=== PATIENT | female | born 1965 | race American Indian/Alaskan Native ===

== ENCOUNTER 2017-07-23 20:54 | Emergency (ER) | payer MEDICAID, OTHER ==
[2017-07-23 20:56] VITALS: BMI 27.9
--- NOTE | 2017-07-23 21:24 | C.PDOC ---
History Of Present Illness patient complaining of chest discomfort after vomiting. Pt has been drinking heavily over the last few days. No f/c. Speaking in complete sentences. Reproducible chest discomfort Time Seen by Provider: 07/23/17 21:24 Chief Complaint (Nursing): Chest Pain History Per: Patient History/Exam Limitations: no limitations Onset/Duration Of Symptoms: Days (2) Current Symptoms Are (Timing): Still Present Context: Other Severity: Mild Pain Scale Rating Of: 3 Quality: Dull, Aching Associated Symptoms: denies: Nausea, Dyspnea Modifying Factors: None Exacerbating Factors: Turning, Movement Alleviating Factors: None Recent travel outside of the [place]: No Additional History Per: Patient Past Medical History Reviewed: Historical Data, Nursing Documentation, Vital Signs Vital Signs: Last Vital Signs Temp 98 F 07/24/17 00:31 Pulse 110 H 07/24/17 00:31 Resp 20 07/24/17 00:31 BP 143/88 07/24/17 00:31 Pulse Ox 98 07/24/17 00:31 - Medical History PMH: Bronchitis, HTN, Seizures Denies: Chronic Kidney Disease - [facility] Procedures OTHER GROUP THERAPY (01/27/15) Family History: States: No Known Family Hx - Social History Hx Tobacco Use: No Hx Alcohol Use: Yes Hx Substance Use: Yes - Immunization History Hx Tetanus Toxoid Vaccination: No Hx Influenza Vaccination: No Hx Pneumococcal Vaccination: No Review Of Systems Constitutional: Negative for: Fever, Chills Eyes: Negative for: Redness ENT: Negative for: Throat Pain Cardiovascular: Positive for: Chest Pain (with movement) Respiratory: Negative for: Shortness of Breath Gastrointestinal: Negative for: Nausea, Vomiting, Abdominal Pain Genitourinary: Negative for: Dysuria Musculoskeletal: Positive for: Back Pain Skin: Negative for: Rash, Lesions Neurological: Negative for: Weakness Psych: Positive for: Anxiety Physical Exam - Physical Exam Appears: Non-toxic Skin: Warm, Dry Head: Normacephalic Eye(s): bilateral: Normal Inspection, PERRL, EOMI Oral Mucosa: Moist ED Course And Treatment - Laboratory Results Result Diagrams: 07/23/17 22:25 07/23/17 22:25 ECG: Interpreted By Me, Viewed By Me ECG Rhythm: Sinus Tachycardia (120), Nonspecific Changes O2 Sat by Pulse Oximetry: 94 Pulse Ox Interpretation: Normal - Radiology CXR: Interpreted by Me, Viewed By Me CXR Interpretation: No: Infiltrates, Fracture, Pnemothorax Disposition Counseled Patient/Family Regarding: Studies Performed, Diagnosis - Disposition Disposition: HOSPITALIZED Disposition Time: 21:24 Condition: FAIR Prescriptions: Ondansetron ODT [Zofran ODT] 1 odt PO BID PRN #6 odt PRN Reason: Nausea/Vomiting Instructions: Acute Nausea and Vomiting (ED), Alcohol Intoxication (DC) Forms: [facility] (Indonesian) - Clinical Impression Clinical Impression: Vomiting, Alcohol intoxication
[2017-07-23 22:32] LABS: BASO # 0.1 K/uL (0.0-0.2)
[2017-07-23 22:47] LABS: INR 0.9
[2017-07-23 22:48] LABS: CHLORIDE 81 mmol/L (98-107); SODIUM 137 mmol/L (132-148)
[2017-07-23 22:51] LABS: ALB/GLOB RATIO 1.3 (1.0-2.1); ALKALINE PHOSPHATASE 112 U/L (38-126); ALT/SGPT 17 U/L (9-52); AST/SGOT 31 U/L (14-36); BILIRUBIN,TOTAL 0.9 mg/dL (0.2-1.3); BLOOD UREA NITROGEN 20 mg/dL (7-17); CALCIUM 10.9 mg/dl (8.6-10.4); CARBON DIOXIDE 22 mmol/L (22-30); GFR AFRICAN-AMERICAN > 60; GLUCOSE,RANDOM 71 mg/dL (65-105); TOTAL PROTEIN 8.6 g/dL (6.3-8.3)
[2017-07-23 22:52] LABS: ALCOHOL SERUM 144 mg/dl (0-10)
[2017-07-23 23:11] LABS: BASO % 0.4 % (0.0-2.0); LYMPH # 2.4 K/uL (1.0-4.3); LYMPH % 12.7 % (20.0-40.0); MEAN CELL VOLUME 88.9 fL (81.0-99.0); MEAN CORPUSCULAR HEMOGLOBIN 29.3 pg (27.0-31.0); MEAN CORPUSCULAR HGB CONC 32.9 g/dL (33.0-37.0); MEAN PLATELET VOLUME 8.4 fL (7.2-11.7); MONO # 1.4 K/uL (0.0-0.8); MONO % 7.5 % (0.0-10.0); NRBC % 0.1 % (0.0-2.0); RED CELL DISTRIBUTION WIDTH 15.7 % (11.5-14.5); WHITE BLOOD COUNT 18.7 K/uL (4.8-10.8)
[2017-07-23 23:41] LABS: RBC URINE 8 /hpf (0-3); URINE BILIRUBIN NEGATIVE (NEGATIVE); URINE BLOOD 1+ (NEGATIVE); URINE COLOR Yellow (YELLOW); URINE GLUCOSE (UA) 1+ mg/dL (Normal); URINE KETONE 2+ mg/dL (NEGATIVE); URINE LEUKOCYTE ESTERASE NEG Leu/uL (Negative); URINE PROTEIN 2+ mg/dL (NEGATIVE); URINE UROBILINOGEN NORMAL mg/dL (0.2-1.0); WBC URINE 1 /hpf (0-5)
[2017-07-24 00:32] VITALS: RESP 20; TEMP 98
[2017-07-24 02:31] VITALS: BP 146/90; PULSE 88; O2SAT 98
--- NOTE | 2017-07-24 08:05 | RAD ---
PROCEDURE: CHEST RADIOGRAPH, 1 VIEW HISTORY: chest pain COMPARISON: Comparison is made to 01/27/2015 FINDINGS: LUNGS: Clear. PLEURA: No pneumothorax or pleural fluid seen. CARDIOVASCULAR: Normal. OSSEOUS STRUCTURES: No significant abnormalities. VISUALIZED UPPER ABDOMEN: Normal. OTHER FINDINGS: None. IMPRESSION: No active disease.
--- NOTE | 2017-07-24 14:15 | CARD ---
APPROVED REPORT EKG Measurement Heart [id number] <Conclusion> Sinus tachycardia Biatrial enlargement Abnormal ECG
== END 2017-07-24 02:29 | disposition home or self-care (01) ==
LOC: C.ER 20:54
DX: F10.129 Alcohol abuse with intoxication, unspecified (principal); Y90.6 Blood alcohol level of 120-199 mg/100 ml; R11.10 Vomiting, unspecified; I10 Essential (primary) hypertension
CPT/HCPCS: 71010; 80053; 80320; 81001; 83690; 83880; 84484; 84703; 85025; 85610; 85730; 93005; 96374; 96375; 99285; J1885; J2405

== ENCOUNTER 2018-08-12 20:04 | Inpatient (IN) | payer MEDICAID, OTHER ==
[2018-08-12 20:04] VITALS: BMI 26.3
[2018-08-12] MEDS ORDERED: Sodium Chloride 0.9% 1,000 ML IV ONE (20:35)
[2018-08-12 20:56] LABS: URINE BACTERIA RARE (<OCC); URINE BILIRUBIN NEGATIVE (NEGATIVE); URINE BLOOD 1+ (NEGATIVE); URINE CLARITY Clear (Clear); URINE COLOR Yellow (YELLOW); URINE GLUCOSE (UA) 1+ mg/dL (Normal); URINE HYALINE CAST >20 /lpf (0-2); URINE LEUKOCYTE ESTERASE NEG Leu/uL (Negative); URINE PROTEIN 2+ mg/dL (NEGATIVE); URINE UROBILINOGEN NORMAL mg/dL (0.2-1.0)
[2018-08-12 20:59] LABS: SQUAMOUS EPITHIAL 3 /hpf (0-5)
[2018-08-12 21:13] LABS: BARBITURATES, UR NEGATIVE (NEGATIVE); BENZODIAZEPINES, UR NEGATIVE (NEGATIVE); OPIATES, UR NEGATIVE (NEGATIVE); PHENCYCLIDINE, UR NEGATIVE (NEGATIVE)
[2018-08-12 21:44] LABS: BASO # 0.1 K/uL (0.0-0.2); BASO % 0.7 % (0.0-2.0); HEMOGLOBIN 14.9 g/dL (11.0-16.0); LYMPH # 1.4 K/uL (1.0-4.3); LYMPH % 6.9 % (20.0-40.0); MEAN CORPUSCULAR HEMOGLOBIN 29.6 pg (27.0-31.0); MEAN CORPUSCULAR HGB CONC 33.3 g/dL (33.0-37.0); MEAN PLATELET VOLUME 7.4 fL (7.2-11.7); MONO # 0.5 K/uL (0.0-0.8); MONO % 2.5 % (0.0-10.0); NEUT # 18.4 K/uL (1.8-7.0); NEUT % 89.9 % (50.0-75.0); PLATELET COUNT 473 K/uL (130-400); RBC 5.03 Mil/uL (3.80-5.20); RED CELL DISTRIBUTION WIDTH 15.5 % (11.5-14.5); WHITE BLOOD COUNT 20.4 K/uL (4.8-10.8)
[2018-08-12 21:57] LABS: ALB/GLOB RATIO 1.4 (1.0-2.1); ALBUMIN 5.1 g/dL (3.5-5.0); BLOOD UREA NITROGEN 14 mg/dL (7-17); CALCIUM 9.8 mg/dl (8.6-10.4); GFR NON-AFRICAN AMERICAN > 60
[2018-08-12 22:01] LABS: ALT/SGPT 28 U/L (9-52); AST/SGOT 29 U/L (14-36)
[2018-08-12] MEDS ORDERED: Iohexol 350mg/ml 100 ML ONE (22:19)
[2018-08-12 22:21] LABS: BANDS 1 % (0-2); HYPOCHROMIC SLIGHT; LYMPHOCYTE 7 % (20-40); MICROCYTOSIS SLIGHT; MONOCYTE 1 % (0-10); NEUTROPHIL 91 % (50-75); PLATELET ESTIMATE NORMAL (NORMAL); TOTAL CELLS COUNTED 100
[2018-08-12 22:22] LABS: LARGE PLATELETS PRESENT
[2018-08-12] MEDS ORDERED: Morphine 4 MG/ML VIAL IV STA (23:25)
[2018-08-12] MEDS ORDERED: metroNIDAZOLE IV 500 mg/100 ml 500 MG/100 ML BAG IVPB STA (23:26)
[2018-08-12] MEDS ORDERED: Ciprofloxacin 400mg/200ml D5W 400 MG/200 ML BAG IVPB STA (23:26)
[2018-08-12] MEDS ORDERED: metroNIDAZOLE IV 500 mg/100 ml 500 MG/100 ML BAG ONE (23:35)
[2018-08-12] MEDS: Dextrose 5%/0.45% NS 1,000 ML IV SCH (23:50)
[2018-08-12] MEDS ORDERED: Dextrose 5%-0.225% NS 1,000 ML IV ONE (23:53)
[2018-08-13 00:37] VITALS: RESP 20
[2018-08-13] MEDS: Ciprofloxacin 400mg/200ml D5W 400 MG/200 ML BAG IVPB SCH ×2 (00:56→11:52)
[2018-08-13] MEDS: HYDROmorphone 1 mg/ml ISec IVP PRN ×2 (03:23→09:41)
--- NOTE | 2018-08-13 03:55 | C.PDOC ---
History Of Present Illness 53 year old female presents to the ER with a complaint of epigastric pain associated with nausea and nonbloody vomiting. Patient admits to ETOH use tonight, states she "binge drinks". Denies fever or cough. She also notes she feels depressed but denies suicidal ideation or homicidal ideation. Time Seen by Provider: 08/12/18 20:15 Chief Complaint (Nursing): Flu-like Symptoms History Per: Patient History/Exam Limitations: no limitations Onset/Duration Of Symptoms: Hrs Current Symptoms Are (Timing): Still Present Location Of Pain/Discomfort: Epigastric Radiation Of Pain To:: None Quality Of Discomfort: Unable To Describe Associated Symptoms: denies: Fever, Other (Cough) Exacerbating Factors: None Alleviating Factors: None Recent travel outside of the [place]: No Past Medical History Reviewed: Historical Data, Nursing Documentation, Vital Signs Vital Signs: Last Vital Signs Temp 98.9 F 08/13/18 00:36 Pulse 100 H 08/13/18 00:36 Resp 20 08/13/18 00:36 BP 156/85 H 08/13/18 00:36 Pulse Ox 96 08/13/18 00:36 - Medical History PMH: Anxiety, Bronchitis, COPD, Depression, Gastrointestinal Ulcer, Migraine Denies: Diabetes, Hepatitis, HIV, HTN, Chronic Kidney Disease, Seizures, Sexually Transmitted Disease - [facility] Procedures CONTROL BLEEDING IN GASTROINTESTINAL TRACT, ENDO (12/02/17) EXCISION OF STOMACH, ENDO, DIAGN (12/02/17) INSERT INFUSION DEV IN R INT JUGULAR VEIN, PERC (12/02/17) INTRODUCTION OF OTHER THERAPEUTIC SUBSTANCE INTO UP GI, ENDO (12/02/17) OTHER GROUP THERAPY (01/27/15) TRANSFUSE NONAUT RED BLOOD CELLS IN PERIPH VEIN, PERC (12/02/17) ULTRASONOGRAPHY OF RIGHT JUGULAR VEINS, GUIDANCE (12/02/17) Family History: States: Unknown Family Hx - Social History Hx Tobacco Use: No Hx Alcohol Use: Yes Hx Substance Use: No - Immunization History Hx Tetanus Toxoid Vaccination: No Hx Influenza Vaccination: No Hx Pneumococcal Vaccination: No Review Of Systems Constitutional: Negative for: Fever Cardiovascular: Negative for: Chest Pain, Palpitations Respiratory: Negative for: Cough Gastrointestinal: Positive for: Nausea, Vomiting, Abdominal Pain Psych: Negative for: Suicidal ideation, Other (Homicidal ideation) Physical Exam - Physical Exam Appears: Non-toxic Skin: Normal Color, Warm, Dry Head: Atraumatic, Normacephalic Eye(s): bilateral: Normal Inspection Oral Mucosa: Moist Throat: Normal, No Erythema Neck: Normal, Supple Chest: Symmetrical, No Tenderness Cardiovascular: Rhythm Regular Respiratory: Normal Breath Sounds, No Rales, No Rhonchi, No Wheezing Gastrointestinal/Abdominal: Soft, Tenderness (Diffuse), No Guarding, No Rebound Back: No CVA Tenderness Neurological/Psych: Oriented x3, Normal Speech ED Course And Treatment - Laboratory Results Result Diagrams: 08/12/18 21:41 08/12/18 21:41 O2 Sat by Pulse Oximetry: 96 (Room air) Pulse Ox Interpretation: Normal Progress Note: CT abd/pel and blood work ordered. Pepcid, zofran, IV fluids and morphine administered. Disposition - Disposition Disposition: HOSPITALIZED Disposition Time: 23:20 Condition: STABLE - Clinical Impression Clinical Impression: Colitis, Abdominal pain - Scribe Statement The provider has reviewed the documentation as recorded by the Scribe Jeremie Quarles All medical record entries made by the Jose De Jesusibsurjit were at my direction and personally dictated by me. I have reviewed the chart and agree that the record accurately reflects my personal performance of the history, physical exam, medical decision making, and the department course for this patient. I have also personally directed, reviewed, and agree with the discharge instructions and disposition.
--- NOTE | 2018-08-13 09:17 | CT ---
Date of service: 08/12/2018 PROCEDURE: CT Abdomen and Pelvis with contrast HISTORY: diffuse abd pain COMPARISON: 03/26/2014. TECHNIQUE: CT scan of the abdomen and pelvis was performed after administration of intravenous contrast. Oral contrast was not administered. Coronal and sagittal reformatted images were obtained. Contrast dose: 100 mL Omnipaque 350 Radiation dose: Total exam DLP = 570.64 mGy-cm. This CT exam was performed using one or more of the following dose reduction techniques: Automated exposure control, adjustment of the mA and/or kV according to patient size, and/or use of iterative reconstruction technique. FINDINGS: LOWER THORAX: The visualized lungs are clear. LIVER: Mild hepatomegaly and diffuse fatty liver. No gross lesion or ductal dilatation. GALLBLADDER AND BILE DUCTS: No calcified gallstones. PANCREAS: Normal in size with homogeneous enhancement. No gross lesion or ductal dilatation. SPLEEN: Normal in size with homogeneous enhancement. ADRENALS: No discrete nodule. KIDNEYS AND URETERS: Normal in size with homogeneous enhancement. No hydronephrosis. No solid mass. VASCULATURE: Early atherosclerotic aortoiliac calcifications. No aortic aneurysm. BOWEL: The small bowel loops are normal in caliber. There is submucosal fat deposit travis in the ascending and transverse colon. There is mild circumferential mural thickening in the left hemicolon. No bowel obstruction APPENDIX: Normal appendix. PERITONEUM: No free fluid. No free air. LYMPH NODES: No enlarged lymph nodes. BLADDER: Grossly normal in appearance. REPRODUCTIVE: The uterus is normal in size. BONES: No acute fracture. Within normal limits for the patient's age. OTHER FINDINGS: Is there is a small sliding hiatal hernia. There is a moderate circumferential mural thickening in the distal esophagus. IMPRESSION: Mild circumferential mural thickening in the left hemicolon is nonspecific and could be related to underdistention however acute nonspecific infectious/inflammatory colitis is also a consideration. Clinical follow-up is advised. . Fat deposit travis in the ascending and transverse colon likely represents chronic colitis. Mild hepatomegaly and fatty liver. Small sliding hiatal hernia. Moderate circumferential mural thickening in the distal esophagus could be related to underdistention however nonspecific esophagitis and neoplasm are also differential considerations. Clinical follow-up is recommended and if clinically indicated correlation with EGD may be performed. A preliminary report was provided by [facility].
[2018-08-13] MEDS: Thiamine 100 mg/ml Inj IM SCH (09:40)
[2018-08-13] MEDS: Dextrose 5%/0.45% NS 1,000 ML IV SCH ×2 (10:14→21:47)
[2018-08-13] MEDS: Lidocaine 5% Patch TD SCH (10:47)
[2018-08-13] MEDS: metroNIDAZOLE IV 500 mg/100 ml 500 MG/100 ML BAG IVPB SCH ×2 (11:11→17:38)
[2018-08-13 11:37] LABS: BASO # 0.1 K/uL (0.0-0.2); BASO % 0.4 % (0.0-2.0); EOS % 0.2 % (0.0-4.0); LYMPH % 16.4 % (20.0-40.0); MEAN CORPUSCULAR HEMOGLOBIN 30.1 pg (27.0-31.0); MEAN CORPUSCULAR HGB CONC 34.2 g/dL (33.0-37.0); MEAN PLATELET VOLUME 7.7 fL (7.2-11.7); MONO # 1.3 K/uL (0.0-0.8); MONO % 7.4 % (0.0-10.0); NEUT # 13.6 K/uL (1.8-7.0); NEUT % 75.6 % (50.0-75.0); NRBC % 0.1 % (0.0-2.0); RBC 4.22 Mil/uL (3.80-5.20); RED CELL DISTRIBUTION WIDTH 15.5 % (11.5-14.5)
[2018-08-13 11:42] LABS: HEMOGLOBIN 12.7 g/dL (11.0-16.0)
[2018-08-13 11:52] LABS: ALB/GLOB RATIO 1.3 (1.0-2.1); ALBUMIN 4.3 g/dL (3.5-5.0); ALT/SGPT 27 U/L (9-52); AST/SGOT 30 U/L (14-36); BLOOD UREA NITROGEN 15 mg/dL (7-17); GFR NON-AFRICAN AMERICAN > 60
--- NOTE | 2018-08-13 13:31 | CP.PCM.PN ---
Subjective - Date & Time of Evaluation Date of Evaluation: 08/13/18 Time of Evaluation: 09:05 - Subjective Subjective: PGY 2 progress note ( Dr. Mendez's service) CC: Multiple complaints ( Epigastric pain, chest discomfort and acid reflux) HPI: Patient is a 53 year old female with past medical history of alcohol abuse and HTN, who presents to the ED with multiple complaints: epigastric pain, diffuse abdominal pain, chest discomfort and acid reflux that started yesterday morning after drinking 2 bottle of wine (binge drinking). Patient admits to ass ociated symptoms of non-bloody vomiting and dizziness. Patient also admits to feeling depressed but denies any plans of hurting herself. Patient denies any symptoms of fever, chills, nausea, hematemesis, melena, hematochezia, cough, headache but does admits to mild diffuse lower abdominal pain with 1-2 loose stool. During the encounter, patient is with improved symptoms. Patient does have a history of leaving AMA. PMD: Dr. Aquino PMHx: Alcohol abuse, HTN PSHx: Denies Fam Hx: Pancreatic Cancer (Father-Alive), Cancer (Paternal Uncle-), Cancer (Paternal Aunt- Alive Medications: Prilosec prn Allergies: NKDA Social Hx: Lives from house to house, admits to intermittent binge drinking ( Hx of heavy alcohol abuse), Daily marijuana use, tobacco use > 30 years (1/2PPD) Objective - Vital Signs/Intake and Output Vital Signs (last 24 hours): Temp Pulse Resp BP Pulse Ox 98.5 F 112 H 20 151/97 H 96 08/13/18 07:40 08/13/18 07:40 08/13/18 07:40 08/13/18 07:40 08/13/18 07:40 Intake and Output: 08/13/18 08/13/18 06:59 18:59 Intake Total 600 Balance 600 - Medications Medications: Current Medications Dextrose/Sodium Chloride (Dextrose 5%/0.45% Ns 1000 Ml) 1,000 mls @ 100 mls/hr IV .Q10H RENZO Last Admin: 08/13/18 10:14 Dose: Not Given Ciprofloxacin (Cipro 400mg/200ml Dsw) 400 mg in 200 mls @ 133 mls/hr IVPB Q12H RENZO; Protocol Last Admin: 08/13/18 11:52 Dose: 133 mls/hr Folic Acid 1 mg/ Sodium (Chloride) 100.2 mls @ 60 mls/hr IV DAILY [facility] Last Admin: 08/13/18 11:15 Dose: 60 mls/hr Metronidazole (Flagyl) 500 mg in 100 mls @ 100 mls/hr IVPB Q8H RENZO; Protocol Last Admin: 08/13/18 11:11 Dose: 100 mls/hr Influenza Virus Vaccine (Fluzone Quad [id number]) 60 mcg IM .ONCE ONE Stop: 08/15/18 10:01 Lidocaine (Lidoderm) 1 ea TD DAILY [facility] Last Admin: 08/13/18 10:47 Dose: 1 ea Lorazepam (Ativan) 2 mg IVP Q6H PRN PRN Reason: Symptoms of alcohol withdrawl Last Admin: 08/13/18 10:47 Dose: 2 mg Ondansetron HCl (Zofran Inj) 4 mg IVP Q4H PRN PRN Reason: Nausea/Vomiting Pantoprazole Sodium (Protonix Inj) 40 mg IVP DAILY [facility] Last Admin: 08/13/18 09:40 Dose: 40 mg Pneumococcal Polyvalent Vaccine (Pneumovax 23 Vaccine) 0.5 ml IM .ONCE ONE Stop: 08/15/18 10:01 Thiamine HCl (Vitamin B1 Inj) 100 mg IM DAILY [facility] Last Admin: 08/13/18 09:40 Dose: 100 mg - Labs Labs: 08/13/18 11:19 08/13/18 11:19 - Constitutional Appears: No Acute Distress - Head Exam Head Exam: ATRAUMATIC, NORMAL INSPECTION - Eye Exam Eye Exam: EOMI, Normal appearance - ENT Exam ENT Exam: Mucous Membranes Dry - Respiratory Exam Respiratory Exam: Clear to Ausculation Bilateral, NORMAL BREATHING PATTERN. absent: Prolonged Expiratory Phase, Rhonchi, Wheezes, Respiratory Distress - Cardiovascular Exam Cardiovascular Exam: REGULAR RHYTHM, +S1, +S2. absent: Bradycardia, Tac hycardia, Murmur - GI/Abdominal Exam GI & Abdominal Exam: Soft, Normal Bowel Sounds. absent: Distended, Firm, Guarding, Rigid, Tenderness - Extremities Exam Extremities Exam: Normal Inspection. absent: Calf Tenderness, Full ROM, Joint Swelling, Pedal Edema, Tenderness - Back Exam Back Exam: NORMAL INSPECTION. absent: CVA tenderness (L), CVA tenderness (R) Additional comments: Lipoma (Left upper back) Left upper/midspine thoracic tenderness on palpation - Neurological Exam Neurological Exam: Alert, Awake, Oriented x3 - Psychiatric Exam Psychiatric exam: Normal Affect - Skin Skin Exam: Normal Color Assessment and Plan (1) Colitis Assessment & Plan: CT abdomen/Pelvis (08/12/18): Mild circumferential mural thickening in the left hemicolon is nonspecific and could be related to underdistention however acute nonspecific infectious/inflammatory colitis is also a consideration. Clinical follow-up is advised. Fat deposit travis in the ascending and transverse colon likely represents chronic colitis. Mild hepatomegaly and fatty liver. Small sliding hiatal hernia. Moderate circumferential mural thickening in the distal esophagus could be related to underdistention however nonspecific esophagitis and neoplasm are also differential considerations. Clinical follow-up is r ecommended and if clinically indicated correlation with EGD may be performed. Consultation: * GI, Dr. Redding---Help appreciated Medications/Management: * Cipro 400ml IV Q12H * Flagyl 500mg IV 8H * Florastor 250mg BID * Protonix 40mg IV daily * D51/2 NS @ 100mls/hr * Liquid diet by dinner time Status: Acute (2) Alcohol dependence Assessment & Plan: Psychiatry Consult, Dr. Portillo---> Help appreciated: * Management as per recommendation * Librium 25mg PO Q6H * Librium 25mg PO Q4H PRN * Clonidine 0.1mg PO Q4H prn * Folic acid 1mg IV daily * Multivitamin 1 PO daily * Thiamine 1mg IM daily * Ativan 2mg IV Q6H PRN Status: Acute (3) Upper back pain Assessment & Plan: Lidoderm patch Status: Acute (4) Prophylactic measure Assessment & Plan: GI: Protonix 40mg IV daily DVT: SCDs All plans and management discussed with Dr. Mendez Status: Acute
--- NOTE | 2018-08-13 13:53 | PCM.PSYCH ---
Initial Psychiatric Evaluation - Initial Psychiatric Evaluation Type of Admission: Voluntary Legal Status: Capacity Chief Complaint (in patient's own words): "I feel anxious" History of Present Illness and Precipitating Events: The pt is seen, chart reviewed and case discussed. 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 She describes withdrwal sx, mild DTs and no seizures She was detoxed once 3 years ago but no rehab Uses [facility] at times, no drugs, smokes 1/2 ppd cig Feels depressed and anxious Not suicidal but very depressed Past psych hx: Depression, no admission andn no jaime attempt Medical hx: GI and back problems Family: Alcoholism Current Medications: Active Medications Generic Name Dose Route Start Last Admin Trade Name Freq PRN Reason Stop Dose Admin Chlordiazepoxide 0 mg 08/13/18 16:00 Librium PO 08/18/18 15:59 Q6 RENZO Taper Chlordiazepoxide 25 mg 08/13/18 13:51 Librium PO Q4H PRN Alcohol Withdrawal Clonidine HCl 0.1 mg 08/13/18 13:51 Catapres PO Q4H PRN Symptoms of alcohol withdrawl Folic Acid 1 mg 08/14/18 10:00 Folic Acid PO DAILY RENZO Dextrose/Sodium Chloride 1,000 mls @ 100 mls/hr 08/12/18 23:30 08/13/18 10:14 Dextrose 5%/0.45% Ns 1000 Ml IV Not Given .Q10H RENZO Ciprofloxacin 400 mg in 200 mls @ 133 mls/hr 08/12/18 23:30 08/13/18 11:52 Cipro 400mg/200ml Dsw IVPB 133 mls/hr Q12H RENZO Administration Protocol Folic Acid 1 mg/ Sodium 100.2 mls @ 60 mls/hr 08/13/18 10:15 08/13/18 11:15 Chloride IV 60 mls/hr DAILY [facility] Administration Metronidazole 500 mg in 100 mls @ 100 mls/hr 08/13/18 10:30 08/13/18 11:11 Flagyl IVPB 100 mls/hr Q8H RENZO Administration Protocol Influenza Virus Vaccine 60 mcg 08/15/18 10:00 Fluzone Quad [id number] IM 08/15/18 10:01 .ONCE ONE Lidocaine 1 ea 08/13/18 10:15 08/13/18 10:47 Lidoderm TD 1 ea DAILY [facility] Administration Lorazepam 2 mg 08/13/18 10:14 08/13/18 10:47 Ativan IVP 2 mg Q6H PRN Administration Symptoms of alcohol withdrawl Multivitamins 1 tab 08/14/18 10:00 Hexavitamin PO DAILY RENZO Ondansetron HCl 4 mg 08/12/18 23:26 Zofran Inj IVP Q4H PRN Nausea/Vomiting Pantoprazole Sodium 40 mg 08/13/18 10:00 08/13/18 09:40 Protonix Inj IVP 40 mg DAILY [facility] Administration Pneumococcal Polyvalent Vaccine 0.5 ml 08/15/18 10:00 Pneumovax 23 Vaccine IM 08/15/18 10:01 .ONCE ONE Thiamine HCl 100 mg 08/13/18 10:00 08/13/18 09:40 Vitamin B1 Inj IM 100 mg DAILY RENZO Administration Thiamine HCl 100 mg 08/14/18 10:00 Vitamin B1 Tab PO DAILY [facility] Past Psychiatric History - Past Psychiatric History Previous Treatment History: None Pertinent Medical Hx (Current Medical&Sleep Prob, Allergies): Allergies Allergy/AdvReac Type Severity Reaction Status Date / Time No Known Allergies Allergy Verified 12/02/17 22:00 Folic Acid 1 mg PO DAILY #30 tab 12/05/17 Multivitamin Therapeutic Tab [Thera Tab] 1 tab PO 0800 #30 tab 12/05/17 Pantoprazole [Protonix] 40 mg PO BID #60 ect 12/05/17 Sucralfate [Carafate Oral Susp] 1 gm PO 0630,1130,1630,2200 #1 bottle 12/05/17 Thiamine [Vitamin B1 Tab] 100 mg PO DAILY #30 tab 12/05/17 chlordiazePOXIDE [Librium] 10 mg PO Q8 #21 cap 12/05/17 Review of Systems - Neurological Neurological: Tremor - Psychiatric Psychiatric: Abnormal Sleep Pattern, Anhedonia, Change in Appetite, Depression. absent: Hallucinations, Homicidal Ideation, Paranoia, Suicidal Ideation Mental Status Examination - Personal Presentation Personal Presentation: Looks older than stated age - Affect Affect: Constricted - Speech Speech: Organized - Mood Mood: Depressed - Formal Thought Process Formal Thought Process: No Impairment - Cognitive Functions Orientation: Person, Place, Situation, Time Sensorium: Alert Attention/Concentration: Attentive Estimate of Intelligence: Below average Judgement: Intact, as evidence by: Insight regarding need for hospitalization Memory: Recent intact, as evidence by: Ability to recall events of the day, Remote impaired as evidenced by: Inability to recall sig life events - Risk Risk: Withdrawal, Diminished functioning - Strength & Assets Inventory Strength & Assets Inventory: Cooperative - Limitations Limitations: Living alone DSM 5 DX - DSM 5 DSM 5 Diagnosis: Alcohol withdrawal Alcohol use d/o - severe Major depression, single, moderate Anxiety d/o - unspecified - Recommended/Plan of Treatment Treatment Recommendations and Plan of Treatment: Start librium taper gabapentin Remeron for dep Support and psychoed Refer to rehab upon completion of detox She maybe transferred to detox if medically cleared before the end of detox (call science writer) 33 min
[2018-08-13] MEDS: Saccharomyces Boulardi 250 mg Cap PO SCH (17:23)
--- NOTE | 2018-08-13 20:32 | PN ---
DATE: 08/13/2018 LOCATION: 368, bed B. SUBJECTIVE: This is a 53 years old female seen and examined initially for GI consultation on 08/12/2018 as requested by the admitting MD, reexamined again today, appeared to be somewhat more awake, alert, oriented, but restless, with bilateral both hands fine tremors on and off. The patient denied any chest pain, palpitation, significant shortness of breath or evidence of active bleeding. The most recent lab results showed leukocytosis of with normal hemoglobin and hematocrit, normal platelet count with CO2 content 32 indicative of respiratory alkalosis. Blood glucose level 138, phosphorus low 2.2 with initially normal liver function test as well as normal lipase level, but alcohol quantitative was 115, excessively increased. Official CAT scan report is seen. PHYSICAL EXAMINATION: GENERAL: A 53 years old female. VITAL SIGNS: Afebrile with heart rate of 102, respiratory 20-22, blood pressure of 136/80. HEENT: Showed pale dry oral mucous membrane. Nonicteric sclerae. LUNGS: Few scattered crepitation. Decreased air entry at bases. HEART: Positive S1 and S2. ABDOMEN: Soft with mild generalized tenderness. No mass or organomegaly. No rebound tenderness or guarding. EXTREMITIES: With fine tremors. No clubbing, cyanosis or edema. No reported new neurological deficits, sensory or motor. IMPRESSION: 1. Reexacerbation of peptic ulcer disease to rule out gastric versus duodenal ulcer. 2. Alcoholism. 3. Abnormal CAT scan of the abdomen and pelvis. 4. Known history of chronic obstructive pulmonary disease, depression, migraine headache and severe anxiety syndrome. SUGGESTIONS: 1. Agree with your plan. 2. Follow up psychiatric evaluation. 3. Cancer markers. 4. Endoscopic evaluation of the GI tract when the patient is more stable clinically. Further recommendation to follow. Tawny Preston MD
[2018-08-14] MEDS: Ciprofloxacin 400mg/200ml D5W 400 MG/200 ML BAG IVPB SCH ×2 (00:16→12:17)
[2018-08-14] MEDS: metroNIDAZOLE IV 500 mg/100 ml 500 MG/100 ML BAG IVPB SCH ×2 (02:54→11:26)
[2018-08-14] MEDS: Dextrose 5%/0.45% NS 1,000 ML IV SCH (05:43)
[2018-08-14 08:39] VITALS: BP 117/81; PULSE 86; TEMP 97.9; O2SAT 96
[2018-08-14] MEDS: Saccharomyces Boulardi 250 mg Cap PO SCH (09:38)
[2018-08-14] MEDS: Thiamine 100 mg/ml Inj IM SCH (09:38)
[2018-08-14] MEDS ORDERED: Multiple Vitamins Tab PO SCH (10:00)
[2018-08-14] MEDS: Lidocaine 5% Patch TD SCH (10:03)
[2018-08-14 11:22] LABS: BASO # 0.1 K/uL (0.0-0.2); BASO % 0.8 % (0.0-2.0); EOS % 0.6 % (0.0-4.0); HEMOGLOBIN 13.5 g/dL (11.0-16.0); LYMPH # 2.8 K/uL (1.0-4.3); LYMPH % 35.5 % (20.0-40.0); MEAN CELL VOLUME 89.5 fL (81.0-99.0); MEAN CORPUSCULAR HGB CONC 33.6 g/dL (33.0-37.0); MONO # 0.4 K/uL (0.0-0.8); MONO % 5.4 % (0.0-10.0); NEUT # 4.6 K/uL (1.8-7.0); NEUT % 57.7 % (50.0-75.0); NRBC % 0.1 % (0.0-2.0); RBC 4.49 Mil/uL (3.80-5.20); RED CELL DISTRIBUTION WIDTH 15.2 % (11.5-14.5)
[2018-08-14 11:56] LABS: ALB/GLOB RATIO 1.3 (1.0-2.1); ALBUMIN 4.1 g/dL (3.5-5.0); ALT/SGPT 23 U/L (9-52); AST/SGOT 40 U/L (14-36); BLOOD UREA NITROGEN 8 mg/dL (7-17); CALCIUM 9.5 mg/dl (8.6-10.4); GFR NON-AFRICAN AMERICAN > 60
[2018-08-14 12:15] LABS: PROTHROMBIN TIME 11.2 SECONDS (9.7-12.2)
--- NOTE | 2018-08-14 13:27 | PN ---
DATE: 08/14/2018 LOCATION: 368, bed B. SUBJECTIVE: This is a 53-year-old female, seen and examined early in rounds without significant clinical changes, with generalized weakness and malaise. Appeared to be more alert and oriented. Intermittent period of mild nausea with dyspepsia. No reported active bleeding. No chest pain, palpitation or significant shortness of breath. The entire chart is reviewed including but not limited to most recent lab and radiology study results, current and previous medication list. Today's lab results show blood glucose level of 115. Rest of the lab results is still pending. It was reported also that the patient had elevated lactic acid with low phosphorus and normal cancer markers. Official CAT scan report reviewed again. PHYSICAL EXAMINATION GENERAL: A 53-year-old female. VITAL SIGNS: Afebrile with a pulse of 82, respiratory rate of 20-22, blood pressure of 110/76. HEENT: Showed pale, dry oral mucoid membrane. Nonicteric sclerae. LUNGS: Few scattered crepitation. Decreased air entry at bases. HEART: Positive S1 and S2. ABDOMEN: Soft with mild generalized tenderness. No mass or organomegaly. No rebound tenderness or guarding. EXTREMITIES: Without significant clubbing, cyanosis or edema. NEUROLOGIC: No reported new neurological deficits, sensory or motor. IMPRESSION: 1. Alcoholism. 2. Re-exacerbation of peptic ulcer disease. 3. Abnormal CAT scan of the abdomen and pelvis. 4 Known history of but not limited to depression, severe anxiety syndrome, chronic obstructive pulmonary disease with migraine headache. SUGGESTIONS: 1. Continue current management. 2. Follow up on coagulopathy . 3. The patient to be scheduled for upper endoscopy when she is more stable clinically due to the abnormal finding of the CAT scan of the abdomen and pelvis. Further recommendation to follow. Tawny Preston MD
[2018-08-15] MEDS ORDERED: Pneumococcal 23-Valent Vaccine IM ONE (10:00)
[2018-08-15] MEDS ORDERED: Influenza Vaccine 60 MCG/0.5 ML SYR (3 yr & up) IM ONE (10:00)
== END 2018-08-14 13:47 | disposition home or self-care (01) | DRG 177 ==
LOC: C.ER 20:04 → C.9E 23:21 → C.3T 23:58
PROVIDERS: ADMIT Internal Medicine Pulmonary Disease; ATTEND Internal Medicine Pulmonary Disease
DX: K27.9 Peptic ulcer, site unspecified, unspecified as acute or chronic, without hemorrhage or perforation (principal); F10.239 Alcohol dependence with withdrawal, unspecified; E87.3 Alkalosis; K52.9 Noninfective gastroenteritis and colitis, unspecified; J44.9 Chronic obstructive pulmonary disease, unspecified; F32.9 Major depressive disorder, single episode, unspecified; F41.9 Anxiety disorder, unspecified; I10 Essential (primary) hypertension; K21.9 Gastro-esophageal reflux disease without esophagitis; K44.9 Diaphragmatic hernia without obstruction or gangrene; F12.90 Cannabis use, unspecified, uncomplicated; D72.829 Elevated white blood cell count, unspecified; E83.39 Other disorders of phosphorus metabolism; G43.909 Migraine, unspecified, not intractable, without status migrainosus; K70.0 Alcoholic fatty liver; F17.210 Nicotine dependence, cigarettes, uncomplicated; Y90.5 Blood alcohol level of 100-119 mg/100 ml; Z80.9 Family history of malignant neoplasm, unspecified

== ENCOUNTER 2018-10-07 12:50 | Emergency (ER) | payer OTHER ==
[2018-10-07 12:50] VITALS: BMI 26.3
--- NOTE | 2018-10-07 13:43 | C.PDOC ---
History Of Present Illness 53 y/o female with no PMHX presents to the ED via ambulance for psychiatric evaluation. As per EMS, patients daughter called 911 after patient expressed suicidal ideation. On arrival to the ED, patient denies having any suicidal or homicidal ideation. States she feels depressed, ongoing for some time now. Denies having any pain or medical complaints. Time Seen by Provider: 10/07/18 13:12 Chief Complaint (Nursing): Psychiatric Evaluation History Per: Patient History/Exam Limitations: no limitations Onset/Duration Of Symptoms: Days Current Symptoms Are (Timing): Still Present Associated Symptoms: Depression. denies: Suicidal Thoughts, Suicidal Plan Additional History Per: EMS Past Medical History Reviewed: Historical Data, Nursing Documentation, Vital Signs Vital Signs: Last Vital Signs Temp 98.5 F 10/07/18 13:06 Pulse 120 H 10/07/18 13:06 Resp 14 10/07/18 13:06 BP 177/105 H 10/07/18 13:06 Pulse Ox 97 10/07/18 13:06 - Medical History PMH: Anxiety, Bronchitis, COPD, Depression, Gastrointestinal Ulcer, Migraine Denies: Diabetes, Hepatitis, HIV, HTN, Chronic Kidney Disease, Seizures, Sexually Transmitted Disease - [facility] Procedures CONTROL BLEEDING IN GASTROINTESTINAL TRACT, ENDO (12/02/17) EXCISION OF STOMACH, ENDO, DIAGN (12/02/17) INSERT INFUSION DEV IN R INT JUGULAR VEIN, PERC (12/02/17) INTRODUCTION OF OTHER THERAPEUTIC SUBSTANCE INTO UP GI, ENDO (12/02/17) OTHER GROUP THERAPY (01/27/15) TRANSFUSE NONAUT RED BLOOD CELLS IN PERIPH VEIN, PERC (12/02/17) ULTRASONOGRAPHY OF RIGHT JUGULAR VEINS, GUIDANCE (12/02/17) Family History: States: Unknown Family Hx - Social History Hx Tobacco Use: No Hx Alcohol Use: Yes Hx Substance Use: No - Immunization History Hx Tetanus Toxoid Vaccination: No Hx Influenza Vaccination: No Hx Pneumococcal Vaccination: No Review Of Systems Except As Marked, All Systems Reviewed And Found Negative. Constitutional: Negative for: Fever Cardiovascular: Negative for: Chest Pain Respiratory: Negative for: Shortness of Breath Gastrointestinal: Negative for: Abdominal Pain Psych: Positive for: Depression. Negative for: Suicidal ideation (or homicidal ideation), Other (hallucinations) Physical Exam - Physical Exam Additional Physical Exam Comments: Constitutional: No acute distress. Tearful on exam. Head: Normocephalic. Atraumatic. Eyes: PERRL. ENT: Moist mucous membranes. Neck: Supple. Cardiovascular: Regular rate. Radial pulse 2+ bilaterally. Chest: No tenderness. Respiratory: Clear to auscultation bilaterally. GI: Soft. Nontender. Nondistended. Back: No CVA tenderness. Musculoskeletal: No tenderness or swelling of extremities. Skin: No rash. Neurologic: Alert, no focal deficit. ED Course And Treatment - Laboratory Results Result Diagrams: 10/07/18 14:55 10/07/18 14:55 O2 Sat by Pulse Oximetry: 97 (RA) Pulse Ox Interpretation: Normal Medical Decision Making Medical Decision Making: Plan: Labs ordered for medical clearance. Pending crisis evaluation Evaluated by Crisis, determined does not meet criteria for admission. Discharged, patient appears well on discharge. Advised to return to ED at any time for worsening pain, weakness, vomiting, lethargy, or any other problem. Disposition - Disposition Disposition: HOME/ ROUTINE Disposition Time: 16:48 Condition: STABLE Instructions: Alcohol Abuse and Alcoholism (DC) Forms: [employer] ([place]) - Clinical Impression Clinical Impression: Alcohol intoxication - Scribe Statement The provider has reviewed the documentation as recorded by the Shyam Gao Provider Attestation: All medical record entries made by the Jose De Jesusibsurjit were at my direction and perso bianca dictated by me. I have reviewed the chart and agree that the record accurately reflects my personal performance of the history, physical exam, medical decision making, and the department course for this patient. I have also personally directed, reviewed, and agree with the discharge instructions and disposition.
[2018-10-07] MEDS ORDERED: Alum-Mag Hydrox-Simethicone Susp (30 mL) PO STA (14:43)
[2018-10-07 14:57] LABS: BASO # 0.1 K/uL (0.0-0.2); BASO % 0.9 % (0.0-2.0); HEMOGLOBIN 13.5 g/dL (11.0-16.0); LYMPH % 16.1 % (20.0-40.0); MEAN CELL VOLUME 91.5 fL (81.0-99.0); MEAN CORPUSCULAR HEMOGLOBIN 30.6 pg (27.0-31.0); MEAN CORPUSCULAR HGB CONC 33.4 g/dL (33.0-37.0); MEAN PLATELET VOLUME 7.6 fL (7.2-11.7); MONO # 0.2 K/uL (0.0-0.8); NEUT # 10.2 K/uL (1.8-7.0); RBC 4.42 Mil/uL (3.80-5.20); RED CELL DISTRIBUTION WIDTH 15.4 % (11.5-14.5); WHITE BLOOD COUNT 12.5 K/uL (4.8-10.8)
[2018-10-07] MEDS ORDERED: Alum-Mag Hydrox-Simethicone Susp (30 mL) ONE (15:02)
[2018-10-07 15:10] LABS: ALB/GLOB RATIO 1.4 (1.0-2.1); ALT/SGPT 15 U/L (9-52); AST/SGOT 25 U/L (14-36); BLOOD UREA NITROGEN 11 mg/dL (7-17); CALCIUM 8.8 mg/dl (8.6-10.4); GFR NON-AFRICAN AMERICAN > 60
[2018-10-07 15:15] LABS: SQUAMOUS EPITHIAL 1 /hpf (0-5); URINE BILIRUBIN NEGATIVE (NEGATIVE); URINE BLOOD NEGATIVE (NEGATIVE); URINE CLARITY Clear (Clear); URINE COLOR Straw (YELLOW); URINE GLUCOSE (UA) NORMAL (Normal); URINE HYALINE CAST 0-2 /lpf (0-2); URINE LEUKOCYTE ESTERASE NEG Leu/uL (Negative); URINE PROTEIN NEGATIVE (NEGATIVE); URINE UROBILINOGEN NORMAL mg/dL (0.2-1.0)
[2018-10-07 15:39] LABS: BARBITURATES, UR NEGATIVE (NEGATIVE); BENZODIAZEPINES, UR NEGATIVE (NEGATIVE); OPIATES, UR NEGATIVE (NEGATIVE); PHENCYCLIDINE, UR NEGATIVE (NEGATIVE)
[2018-10-07] MEDS ORDERED: Folic Acid 1 MG, Thiamine 100 MG, Multivitamin (MVI) 10 ML in Dextrose 5% In Water 1,00... IV SCH (15:45)
[2018-10-07 18:57] VITALS: RESP 16
[2018-10-07 19:06] VITALS: BP 169/101; PULSE 90; TEMP 99.3
[2018-10-07 22:55] VITALS: O2SAT 97
== END 2018-10-07 19:05 | disposition home or self-care (01) ==
LOC: C.ER 12:50
DX: F10.129 Alcohol abuse with intoxication, unspecified (principal); Y90.6 Blood alcohol level of 120-199 mg/100 ml
CPT/HCPCS: 80053; 80320; 80324; 80345; 80346; 80349; 80353; 80358; 80361; 81001; 83735; 83992; 84100; 84703; 85025; 96374; 99284; J3411; J7070